=== PATIENT | female | born 1985 | race African-American/Black ===

== ENCOUNTER 2016-07-14 18:54 | Emergency (ER) | payer SELFPAY | END 2016-07-14 19:20 | disposition left against medical advice (07) | LOC: ER 18:55 | DX: J45.909 Unspecified asthma, uncomplicated (principal) ==

== ENCOUNTER 2017-01-26 10:08 | Emergency (ER) | payer SELFPAY ==
[~2017-01-26] VITALS: Ht 160 cm; Wt 64.0 kg
[2017-01-26 10:30] VITALS: BP 114/84
[2017-01-26] MEDS ORDERED: LIDOCAINE HCL 1% 20ML VIAL (Pyxis) INJ INFIL ONE (12:15)
== END 2017-01-26 12:42 | disposition home or self-care (01) ==
LOC: ER 10:56
DX: L03.116 Cellulitis of left lower limb (principal); J45.909 Unspecified asthma, uncomplicated; F12.10 Cannabis abuse, uncomplicated; W57.XXXA Bitten or stung by nonvenomous insect and other nonvenomous arthropods, initial encounter; Y93.89 Activity, other specified; Y92.89 Other specified places as the place of occurrence of the external cause; Y99.8 Other external cause status
CPT/HCPCS: 99283; J3490

== ENCOUNTER 2017-02-01 13:24 | Emergency (ER) | payer SELFPAY ==
[~2017-02-01] VITALS: Ht 160 cm; Wt 64.0 kg
[2017-02-01] MEDS ORDERED: PREDNISONE 20MG TABLET PO ONE (20:30)
[2017-02-01] MEDS ORDERED: FAMOTIDINE 20MG TABLET PO ONE (20:30)
[2017-02-01] MEDS ORDERED: DIPHENHYDRAMINE 25MG CAPSULE PO ONE (20:30)
[2017-02-01 21:16] VITALS: BP 111/71
== END 2017-02-01 21:20 | disposition home or self-care (01) ==
LOC: ER 14:14
DX: S80.862A Insect bite (nonvenomous), left lower leg, initial encounter (principal); S80.861A Insect bite (nonvenomous), right lower leg, initial encounter; W57.XXXA Bitten or stung by nonvenomous insect and other nonvenomous arthropods, initial encounter; Y93.89 Activity, other specified; Y92.89 Other specified places as the place of occurrence of the external cause; J45.909 Unspecified asthma, uncomplicated
CPT/HCPCS: 99284; J7512; Q0163

== ENCOUNTER 2017-08-10 16:44 | Emergency (ER) | payer SELFPAY ==
[~2017-08-10] VITALS: Ht 157.5 cm; Wt 61.0 kg
[2017-08-10 17:09] VITALS: BP 111/76
== END 2017-08-10 22:15 | disposition left against medical advice (07) ==
LOC: ER 16:44
DX: S90.522A Blister (nonthermal), left ankle, initial encounter (principal); M79.622 Pain in left upper arm; F12.10 Cannabis abuse, uncomplicated; W57.XXXA Bitten or stung by nonvenomous insect and other nonvenomous arthropods, initial encounter; Y93.89 Activity, other specified; Y92.89 Other specified places as the place of occurrence of the external cause; Y99.8 Other external cause status
CPT/HCPCS: 99281

== ENCOUNTER 2021-06-15 20:52 | Emergency (ER) | payer SELFPAY ==
[~2021-06-15] VITALS: Ht 157.5 cm; Wt 71.0 kg
[2021-06-15 21:00] VITALS: BP 128/68
[2021-06-15] MEDS ORDERED: FAMO20TA8 MT (22:37)
[2021-06-15] MEDS ORDERED: P20 MT (22:37)
[2021-06-15] MEDS ORDERED: LORA10TA7 MT (22:37)
[2021-06-15] MEDS ORDERED: DIPHENHYDRAMINE 50MG/ML VIAL IM PRN (22:45)
[2021-06-15] MEDS ORDERED: DEXAMETHASONE 10 MG/ML VIAL IM ONE (22:45)
== END 2021-06-15 23:51 | disposition home or self-care (01) ==
LOC: ER 20:52
DX: L50.9 Urticaria, unspecified (principal); J45.909 Unspecified asthma, uncomplicated; F12.10 Cannabis abuse, uncomplicated; Z88.8 Allergy status to other drugs, medicaments and biological substances
CPT/HCPCS: 81025; 96372; 99284; J1100; J1200

== ENCOUNTER 2023-08-25 12:23 | Emergency (ER) | payer SELFPAY ==
[~2023-08-25] VITALS: Ht 160 cm; Wt 68.0 kg
[~2023-08-25 12:23] MED LIST: DIPH25TA26 MT; EPIN0.3P3 IM; FAMO20TA8 MT; LORA10TA7 MT; P20 MT; P50 MT
[2023-08-25 12:38] VITALS: O2SAT 100
[2023-08-25] MEDS: DIPHENHYDRAMINE 25MG CAPSULE PO NR (12:55)
[2023-08-25] MEDS: FAMOTIDINE 20MG TABLET PO NR (12:56)
[2023-08-25] MEDS: PREDNISONE 20MG TABLET PO NR (12:57)
[2023-08-25] MEDS: IPRATROPIUM BROMIDE (0.02%) 0.5MG/2.5ML NEB HHN STA (13:48)
[2023-08-25] MEDS: ALBUTEROL (0.083%) 2.5MG/3ML NEB HHN SCH (13:48)
[2023-08-25 14:00] VITALS: PULSE 84; RESP 18
[2023-08-25] MEDS ORDERED: B50 MT (15:02)
[2023-08-25] MEDS ORDERED: P20 MT (15:02)
[2023-08-25] MEDS ORDERED: FAMO-134 MT (15:02)
[2023-08-25 15:36] VITALS: BP 114/68; PULSE 90; RESP 18; TEMP 98.3
== END 2023-08-25 15:40 | disposition home or self-care (01) ==
LOC: ER 12:29
DX: L50.9 Urticaria, unspecified (principal); J45.909 Unspecified asthma, uncomplicated; F12.10 Cannabis abuse, uncomplicated
CPT/HCPCS: 94640; 99284; Q0163; J7512; Z7610 ×3

== ENCOUNTER 2023-10-02 08:33 | Emergency (ER) | payer OTHER ==
[~2023-10-02] VITALS: Ht 167.6 cm; Wt 78.0 kg
[~2023-10-02 08:33] MED LIST changes: +B50 MT; +FAMO-134 MT
[2023-10-02 08:35] VITALS: O2SAT 99
[2023-10-02] MEDS: FAMOTIDINE 20MG/2ML VIAL IV ONE (08:45)
[2023-10-02] MEDS: DEXAMETHASONE 4MG/ML 1ML VIAL IV ONE (08:45)
[2023-10-02] MEDS: DIPHENHYDRAMINE 50MG/ML VIAL IV ONE (08:45)
[2023-10-02 09:29] LABS: BASOPHILS % 0.4 % (0.0-2.0); HEMATOCRIT. 42.5 % (36.0-48.0); HEMOGLOBIN. 14.3 g/dL (12.0-16.0); LYMPHOCYTES % 21.5 % (20.0-50.0); MEAN CORPUSCULAR HEMOGLOBIN 30.4 pg (28.0-32.0); MEAN CORPUSCULAR HGB CONC 33.6 g/dL (31.0-37.0); MEAN CORPUSCULAR VOLUME 90.4 fL (81.0-99.0); MEAN PLATELET VOLUME 7.4 fl (7.4-10.4); MONOCYTES % 7.2 % (2.0-8.0); NEUTROPHILS % 70.9 % (40.0-76.0); PLATELET 224 x1000/uL (130-400); RED CELL DISTRIBUTION WIDTH 13.8 % (11.6-14.6); WHITE BLOOD COUNT 4.2 x1000/uL (4.5-11.0)
[2023-10-02 09:38] LABS: CHLORIDE 106 mEq/L (98-107); POTASSIUM 3.6 mEq/L (3.5-5.1); SODIUM 134 mEq/L (136-145)
[2023-10-02 09:39] LABS: CALCIUM 8.7 mg/dL (8.7-10.4); CARBON DIOXIDE 19 mEq/L (21-32)
[2023-10-02 09:40] LABS: HCG SCREEN NEGATIVE
[2023-10-02 09:44] LABS: CREATININE 0.9 mg/dL (0.6-1.0); GLUCOSE 200 mg/dL (70-105); UREA NITROGEN BLOOD 10 mg/dL (9-23)
[2023-10-02] MEDS: KETOROLAC 30MG/ML VIAL IM ONE (11:05)
[2023-10-02] MEDS: METOCLOPRAMIDE HCL 10MG/2ML VIAL IV ONE (11:06)
[2023-10-02] MEDS ORDERED: EPIN0.3A3 IM (11:33)
[2023-10-02 11:41] VITALS: BP 132/85; PULSE 71; RESP 14; TEMP 98.1
== END 2023-10-02 11:50 | disposition home or self-care (01) ==
LOC: ER 08:33
DX: T78.49XA Other allergy, initial encounter (principal); J45.909 Unspecified asthma, uncomplicated; F12.90 Cannabis use, unspecified, uncomplicated; Z88.8 Allergy status to other drugs, medicaments and biological substances; X58.XXXA Exposure to other specified factors, initial encounter
CPT/HCPCS: 80048; 84703; 85025; 36415; 96372; 96374; 96375; 99284; J1100; J1200; J3490; J1885; J2765; Z7610 ×3

== ENCOUNTER 2024-05-04 16:03 | Emergency (ER) | payer MEDICAID, OTHER ==
[~2024-05-04] VITALS: Ht 162.6 cm; Wt 73.0 kg
[~2024-05-04 16:03] MED LIST changes: +EPIN0.3A3 IM
[2024-05-04 16:14] VITALS: O2SAT 96
[2024-05-04] MEDS ORDERED: CEPH500C2 PO (19:11)
[2024-05-04] MEDS: BACITRACIN ZINC OINT UDPKT TOP ONE (19:38)
[2024-05-04] MEDS: LIDOCAINE HCL/PF 1% 10 MG/ML 5ML VIAL INFIL ONE (19:38)
[2024-05-04 19:45] VITALS: BP 142/85; PULSE 86; RESP 18; TEMP 37.1; O2SAT 96
== END 2024-05-04 19:49 | disposition home or self-care (01) ==
LOC: ER 16:12
DX: S61.217A Laceration without foreign body of left little finger without damage to nail, initial encounter (principal); F12.10 Cannabis abuse, uncomplicated; J45.909 Unspecified asthma, uncomplicated; Z88.8 Allergy status to other drugs, medicaments and biological substances; Z98.890 Other specified postprocedural states; W26.9XXA Contact with unspecified sharp object(s), initial encounter; Y93.89 Activity, other specified; Y92.89 Other specified places as the place of occurrence of the external cause; Y99.9 Unspecified external cause status
CPT/HCPCS: 99283; 12002; J2003

== ENCOUNTER 2024-05-07 12:32 | Emergency (ER) | payer MEDICAID ==
[~2024-05-07] VITALS: Ht 165.1 cm; Wt 68.0 kg
[~2024-05-07 12:32] MED LIST changes: +CEPH500C2 PO
[2024-05-07 12:37] VITALS: TEMP 36.7; O2SAT 98
[2024-05-07] MEDS ORDERED: IBUP-2028 MT (13:31)
[2024-05-07 14:30] VITALS: BP 132/75; PULSE 90; RESP 17; O2SAT 99
== END 2024-05-07 14:32 | disposition home or self-care (01) ==
LOC: ER 13:34
DX: Z48.00 Encounter for change or removal of nonsurgical wound dressing (principal); J45.909 Unspecified asthma, uncomplicated; F12.90 Cannabis use, unspecified, uncomplicated
CPT/HCPCS: 99282

== ENCOUNTER 2024-05-18 19:16 | Emergency (ER) | payer MEDICAID ==
[~2024-05-18] VITALS: Ht 162.6 cm; Wt 64.0 kg
[~2024-05-18 19:16] MED LIST changes: +IBUP-2028 MT
[2024-05-18 19:27] VITALS: BP 116/74; PULSE 89; RESP 18; TEMP 36.8; O2SAT 100
== END 2024-05-18 20:45 | disposition home or self-care (01) ==
LOC: ER 19:16
DX: S61.218D Laceration without foreign body of other finger without damage to nail, subsequent encounter (principal); Z48.02 Encounter for removal of sutures; Z79.899 Other long term (current) drug therapy; Z88.8 Allergy status to other drugs, medicaments and biological substances; X58.XXXD Exposure to other specified factors, subsequent encounter
CPT/HCPCS: 99281; Z7610

== ENCOUNTER 2024-09-28 23:53 | Emergency (ER) | payer MEDICAID ==
[~2024-09-28] VITALS: Ht 162.6 cm; Wt 74.0 kg
[2024-09-29 00:05] VITALS: O2SAT 99
[2024-09-29 01:00] LABS: BASOPHILS % 0.5 % (0.0-2.0); EOSINOPHILS % 2.7 % (0.0-5.0); HEMATOCRIT. 40.9 % (36.0-48.0); HEMOGLOBIN. 13.3 g/dL (12.0-16.0); LYMPHOCYTES % 51.7 % (20.0-50.0); MEAN PLATELET VOLUME 7.5 fl (7.4-10.4); MONOCYTES % 6.6 % (2.0-8.0); NEUTROPHILS % 38.5 % (40.0-76.0); PLATELET 246 x1000/uL (130-400); RED BLOOD CELL COUNT 4.54 mill/uL (4.2-5.4); RED CELL DISTRIBUTION WIDTH 13.8 % (11.6-14.6)
[2024-09-29 01:15] LABS: CREATININE 0.9 mg/dL (0.6-1.0); UREA NITROGEN BLOOD 10 mg/dL (9-23)
[2024-09-29 01:16] LABS: TROPONIN I HIGH SENSITIVITY < 4 ng/L (3.0-34)
[2024-09-29 01:27] LABS: HCG SCREEN NEGATIVE
[2024-09-29] MEDS ORDERED: P20 MT (02:19)
[2024-09-29] MEDS ORDERED: LORA10TA7 MT (02:19)
[2024-09-29] MEDS ORDERED: ALBU90AE INH (02:19)
[2024-09-29] MEDS ORDERED: TOPUD MT (02:20)
[2024-09-29 02:30] VITALS: BP 109/61; PULSE 70; RESP 18; TEMP 36.9; O2SAT 100
== END 2024-09-29 03:02 | disposition home or self-care (01) ==
LOC: ER 23:53
DX: R07.89 Other chest pain (principal); J45.909 Unspecified asthma, uncomplicated; F12.90 Cannabis use, unspecified, uncomplicated; Z79.899 Other long term (current) drug therapy
CPT/HCPCS: 36415; 71045; 80048; 84484; 84703; 85025; 93005; 99285